=== PATIENT | female | born 1935 | race Caucasian/White ===

== ENCOUNTER 2018-01-29 17:13 | Emergency (ER) | payer MEDICARE, OTHER ==
[~2018-01-29] VITALS: Ht 160 cm; Wt 61.4 kg
[~2018-01-29 17:13] MED LIST: ALEVE220 MG PO; ALL DAY ALLERGY10 M3 PO; ARICEPT10 M1 PO; ASPIRIN81 M2 PO; BIOTIN5000 MCG PO; BUSPIRONE HCL10 MG PO; BUTALB-APAP-CA1 EACH PO; CARAFATE 1 GM TA1 G1 PO; CARBIDOPA-LEVO1 EAC8 PO; CLONAZEPAM 0.50.5 M1 PO; DEPAKOTE 250MG250 M1 PO; DEPAKOTE ER500 MG PO; DILANTIN100 MG PO; DOC-Q-LACE100 MG PO; FISH OIL 1,001000 M2 PO; FLONASE 0.05%50 MCG NASAL; FOLIC ACID1 MG PO; HYDROCODONE-APA1 TA1 PO; KLOR-CON M1010 MEQ PO; LEVOTHYROXIN0.088 MG PO; LOVASTATIN 20 M20 MG PO; MEDROLDOSEPACK PO; MELATONIN1 MG PO; METAMUCIL PAC1 UDPKT PO; MIRALAX17 GM PO; NORCO 5-325 TA1 EAC1 PO; OMEPRAZOLE40 MG PO; OYSCO 500+D TA1 EACH PO; OYST-CAL-500500 MG PO; RESTORIL30 MG PO; ROBITUSSIN100 MG/53 PO; SENOKOT-S1 TA1 PO; SYSTANE 0.3-0.1 EACH OP; TESSALON PERLE100 MG PO; TYLENOL325 MG PO; UNICOMPLEX M TA1 TA1 PO; VITAMINC500 PO; XANAX 0.5 MG0.5 MG PO; ZIOPTAN 0.00151 EACH OP
[2018-01-29] MEDS ORDERED: IBUPROFEN 800800 M1 PO (17:19)
[2018-01-29] MEDS ORDERED: ROBITUSSIN100 MG/53 PO (17:20)
[2018-01-29] MEDS ORDERED: ONDANSETRON HCL4 M2 PO (17:20)
[2018-01-29] MEDS ORDERED: LORATIDINE 10 M10 M1 PO (17:20)
[2018-01-29] MEDS ORDERED: NORCO 7.5-3251 EACH PO (17:21)
[2018-01-29] MEDS ORDERED: XANAX 0.5 MG0.5 M1 PO (17:21)
[2018-01-29] MEDS ORDERED: SYSTANE 0.3-0.1 EACH OPHTHALMIC (17:22)
[2018-01-29] MEDS ORDERED: ALEVE220 MG PO (17:22)
[2018-01-29] MEDS ORDERED: TYLENOL EXTRA500 MG PO (17:22)
[2018-01-29] MEDS ORDERED: HYDROCORTISONE30 G9 TOP (17:22)
[2018-01-29] MEDS ORDERED: TESSALON PERLE100 MG PO (17:23)
[2018-01-29] MEDS ORDERED: BUTALB-APAP-CA1 EACH PO (17:23)
[2018-01-29] MEDS ORDERED: COUGH DROPS3.1 MG PO (17:23)
[2018-01-29] MEDS ORDERED: CARBIDOPA-LEVO1 EAC8 PO (17:24)
[2018-01-29] MEDS ORDERED: DIPHENHIST50 MG PO (17:24)
[2018-01-29] MEDS ORDERED: FLONASE 0.05%50 MCG NASAL (17:24)
[2018-01-29] MEDS ORDERED: CARAFATE 1 GM TA1 G1 PO (17:25)
[2018-01-29] MEDS ORDERED: NATURAL FIBER0.52 GM PO (17:25)
[2018-01-29] MEDS ORDERED: DILANTIN100 MG PO (17:26)
[2018-01-29] MEDS ORDERED: OMEPRAZOLE40 MG PO (17:26)
[2018-01-29] MEDS ORDERED: MIRALAX17 GM PO (17:26)
[2018-01-29] MEDS ORDERED: SENNA-DOCUSATE1 EAC1 PO (17:27)
[2018-01-29] MEDS ORDERED: RESTORIL30 MG PO (17:27)
[2018-01-29] MEDS ORDERED: ZIOPTAN 0.00151 EACH OPHTHALMIC (17:31)
[2018-01-29] MEDS ORDERED: VITAMINC500 PO (17:31)
[2018-01-29] MEDS ORDERED: ASPIR 8181 MG PO (17:32)
[2018-01-29] MEDS ORDERED: BIOTIN5000 MCG PO (17:32)
[2018-01-29] MEDS ORDERED: DOC-Q-LACE100 MG PO (17:32)
[2018-01-29] MEDS ORDERED: DEPAKOTE ER500 MG PO (17:32)
[2018-01-29] MEDS ORDERED: FISH OIL 1,001000 M2 PO (17:32)
[2018-01-29] MEDS ORDERED: ARICEPT 5 MG TAB5 MG PO (17:34)
[2018-01-29] MEDS ORDERED: SYNTHROID88 MCG PO (17:35)
[2018-01-29] MEDS ORDERED: PRINIVIL20 MG PO (17:35)
[2018-01-29] MEDS ORDERED: LATUDA80 MG PO (17:35)
[2018-01-29] MEDS ORDERED: MELATONIN3 MG PO (17:36)
[2018-01-29] MEDS ORDERED: LOVASTATIN 20 M20 MG PO (17:36)
[2018-01-29 19:25] VITALS: BP 183/70
--- NOTE | 2018-01-30 10:56 | EKG ---
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 : 1935 Requested By: Zuleyma Mujica Order Number: [id number] MD: Mayco Thompson Measurements Intervals [place] Rate: 72 P: 34 NE: 142 QRS: -30 QRSD: 102 T: 79 QT: 441 QTc: 483 Interpretive Statements Pacemaker spikes or artifacts Sinus rhythm Probable left atrial enlargement LVH with secondary repolarization abnormality Compared to ECG 12/29/2016 12:09:17 no change Electronically Signed On 01-30-2018 10:55:59 CDT by Mayco Thompson [email or web address] <ELECTRONICALLY SIGNED> By: Mayco Thompson MD, [facility] 01/30/18 1055 1739 1739 Mayco Thompson MD, [facility] /EPI
== END 2018-01-29 19:26 | disposition home or self-care (01) ==
LOC: M.ERS 17:13
DX: S00.03XA Contusion of scalp, initial encounter (principal); I10 Essential (primary) hypertension; F31.9 Bipolar disorder, unspecified; E78.00 Pure hypercholesterolemia, unspecified; Z90.710 Acquired absence of both cervix and uterus; Z88.8 Allergy status to other drugs, medicaments and biological substances; W18.39XA Other fall on same level, initial encounter; Y93.89 Activity, other specified; Y92.89 Other specified places as the place of occurrence of the external cause; Y99.8 Other external cause status

== ENCOUNTER 2020-11-15 18:26 | Inpatient (IN) | payer MEDICARE, MEDICAID ==
[~2020-11-15] VITALS: Ht 160 cm; Wt 62.1 kg
[~2020-11-15 18:26] MED LIST changes: +ARICEPT 5 MG TAB5 MG PO; +ASPIR 8181 MG PO; +COUGH DROPS3.1 MG PO; +DIPHENHIST50 MG PO; +HYDROCORTISONE30 G9 TOP; +IBUPROFEN 800800 M1 PO; +LATUDA80 MG PO; +LORATIDINE 10 M10 M1 PO; +MELATONIN3 MG PO; +NATURAL FIBER0.52 GM PO; +NORCO 7.5-3251 EACH PO; +ONDANSETRON HCL4 M2 PO; +PRINIVIL20 MG PO; +SENNA-DOCUSATE1 EAC1 PO; +SYNTHROID88 MC1 PO; +SYSTANE 0.3-0.1 EACH OPHTHALMIC; +TYLENOL EXTRA500 MG PO; +XANAX 0.5 MG0.5 M1 PO; +ZIOPTAN 0.00151 EACH OPHTHALMIC
[2020-11-15 18:27] VITALS: BP 176/78
[2020-11-15 18:52] LABS: URINE BILIRUBIN NEGATIVE (Negative); URINE BLOOD 3+ (Negative); URINE CLARITY SL CLOUDY; URINE COLOR DARK YELLOW; URINE GLUCOSE-RANDOM NEGATIVE (Negative); URINE KETONES NEGATIVE (Negative); URINE LEUKOCYTES NEGATIVE (Negative); URINE NITRITE NEGATIVE (Negative); URINE PROTEIN 2+ (Negative); URINE SPECIFIC GRAVITY 1.025 (1.005-1.030); URINE UROBILINOGEN 0.2 E.U./dl (0.2-1.0)
[2020-11-15 19:00] LABS: URINE RBC >20 Many /HPF (0-2)
[2020-11-15 19:01] LABS: SQUAMOUS 4-10 Moderate /LPF (0-3)
[2020-11-15 19:02] LABS: BACTERIA None Seen /HPF (None Seen); CRYSTALS None Seen /LPF (None Seen); HYALINE CASTS 0-3 Few /LPF (None Seen); MUCUS 0-3 Light strn/LPF (None Seen); URINE WBC 0-5 Rare /HPF (0-5)
[2020-11-15 19:03] LABS: ABSOLUTE EOSINOPHILS 0.3 thou/uL (0.0-0.7); ABSOLUTE LYMPHOCYTES 1.3 thou/uL (0.8-5.3); ABSOLUTE MONOCYTES 0.7 thou/uL (0.0-1.2); ABSOLUTE NEUTROPHILS 4.3 thou/uL (1.6-8.1); BASOPHILS 0.7 %; EOSINOPHILS 4.7 %; HEMOGLOBIN 12.5 gm/dL (12.0-15.0); LYMPHOCYTES 19.5 %; MCH 32.3 pg (26.0-34.0); MCHC 33.7 g/dL (28.0-37.0); MCV 95.7 fL (80.0-100.0); MONOCYTES 10.4 %; MPV 9.2 fl. (7.2-11.1); NUCLEATED RBCS 0 /100WBC; PLATELET COUNT* 165 thou/uL (150-400); POLYS 64.7 %; RBC 3.86 mil/uL (4.20-5.00); RDW-CV 13.9 % (10.5-14.5); WBC 6.6 thou/uL (4.0-11.0)
[2020-11-15] MEDS ORDERED: XALATAN2.5 ML OPHTHALMIC (19:05)
[2020-11-15] MEDS ORDERED: SORBITOL1 ML (19:08)
[2020-11-15] MEDS ORDERED: SYSTANE 0.3-0.1 EACH (19:09)
[2020-11-15] MEDS ORDERED: OYSTERCAL-D 501 EACH PO (19:09)
[2020-11-15 19:17] LABS: CALCIUM 8.7 mg/dL (8.5-10.1); POTASSIUM 4.3 mmol/L (3.5-5.1)
[2020-11-15 19:22] LABS: ALBUMIN 3.1 g/dL (3.4-5.0); TOTAL BILIRUBIN 0.2 mg/dL (<0.1-1.0); TOTAL PROTEIN 6.8 g/dL (6.4-8.2)
[2020-11-15 21:28] VITALS: BP 145/62
[2020-11-15 22:00] VITALS: BP 175/83
[2020-11-15] MEDS ORDERED: DEPAKOTE ER500 M1 PO (22:12)
--- NOTE | 2020-11-16 10:33 | EKG ---
[place] [address] ELECTROCARDIOGRAM REPORT Name: JOANA PIERCE Room: [address] ADM IN M.R.#: [id number] Admission: 11/16/20 Attend Phys: Robert Pérez Discharge: Date of : 37 Date of Service: 11/15/20 1855 Report #: [id number] THIS REPORT FOR: //name// [facility] ED Test Date: 2020-11-15 Test Time: 18:55:24 Pat Name: JOANA PIERCE Department: Room: [facility] Gender: F [employer]: KRISTIN : 1935 Requested By: Kee Russ Order Number: [id number] MD: Mayco Thompson Measurements Intervals [place] Rate: 64 P: 33 [place]: 144 QRS: -28 QRSD: 99 T: 92 QT: 433 QTc: 447 Interpretive Statements Sinus rhythm LVH with secondary repolarization abnormality Anterior Q waves, possibly due to LVH Compared to ECG 01/29/2018 17:39:09 no change Electronically Signed On 11-16-2020 10:33:00 CDT by Mayco Thompson [email or web address] <ELECTRONICALLY SIGNED> By: Mayco Thompson MD, [facility] 11/16/20 1033 1855 Mayco Thompson MD, [facility] /EPI
[2020-11-16 11:45] VITALS: BP 164/71
[2020-11-16 22:00] VITALS: BP 198/92
[2020-11-16 23:30] VITALS: BP 178/68
[2020-11-17 03:57] LABS: HEMATOCRIT 30.5 % (37.0-47.0); MCH 32.3 pg (26.0-34.0); MCHC 34.1 g/dL (28.0-37.0); MCV 94.7 fL (80.0-100.0); MPV 9.6 fl. (7.2-11.1); RBC 3.22 mil/uL (4.20-5.00); RDW-CV 14.4 % (10.5-14.5); WBC 6.6 thou/uL (4.0-11.0)
[2020-11-17 04:02] LABS: HEMOGLOBIN 10.4 gm/dL (12.0-15.0)
[2020-11-17 04:07] LABS: CALCIUM 8.3 mg/dL (8.5-10.1); CREATININE 0.7 mg/dL (0.6-1.3); POTASSIUM 3.5 mmol/L (3.5-5.1)
[2020-11-17 04:15] VITALS: BP 185/69
[2020-11-17 08:32] VITALS: BP 151/76
[2020-11-17 13:13] VITALS: BP 151/76
== END 2020-11-17 13:15 | disposition home health service (06) | DRG 92 ==
LOC: M.ERS 18:26 → M.TBA-ER 20:21 → M.2W 21:58 → M.ORTHSURG 11-16 10:06
PROVIDERS: Emergency Medicine; Internal Medicine; ADMIT Internal Medicine; ATTEND Internal Medicine
DX: G92 Toxic encephalopathy (principal); E44.0 Moderate protein-calorie malnutrition; R31.9 Hematuria, unspecified; Z20.822 Contact with and (suspected) exposure to COVID-19; I10 Essential (primary) hypertension; F31.9 Bipolar disorder, unspecified; S00.03XA Contusion of scalp, initial encounter; N32.9 Bladder disorder, unspecified; K21.9 Gastro-esophageal reflux disease without esophagitis; E03.9 Hypothyroidism, unspecified; G20 Parkinson's disease; F02.80 Dementia in other diseases classified elsewhere, unspecified severity, without behavioral disturbance, psychotic disturbance, mood disturbance, and anxiety; R26.81 Unsteadiness on feet; T50.905A Adverse effect of unspecified drugs, medicaments and biological substances, initial encounter; Z90.710 Acquired absence of both cervix and uterus; Z98.49 Cataract extraction status, unspecified eye; Z88.8 Allergy status to other drugs, medicaments and biological substances; Z68.24 Body mass index [BMI] 24.0-24.9, adult; W18.39XA Other fall on same level, initial encounter; Y93.89 Activity, other specified; Y92.89 Other specified places as the place of occurrence of the external cause; Y99.8 Other external cause status; T42.4X5A Adverse effect of benzodiazepines, initial encounter

== ENCOUNTER 2021-06-01 08:58 | Emergency (ER) | payer MEDICARE, MEDICAID ==
[~2021-06-01] VITALS: Ht 157.5 cm; Wt 56.7 kg
[~2021-06-01 08:58] MED LIST changes: -ASPIR 8181 MG PO; +CHILDREN'S ASPI81 MG PO; +COLACE 100 MG100 MG PO; +DEPAKOTE ER500 M1 PO; +LEVSIN0.125 MG SUBLING; +OYSTERCAL-D 501 EACH PO; +SORBITOL1 ML; +SYSTANE 0.3-0.1 EACH; +XALATAN2.5 ML OPHTHALMIC
[2021-06-01 10:15] VITALS: BP 214/90
== END 2021-06-01 10:15 | disposition home or self-care (01) ==
LOC: M.ERS 08:58
DX: I10 Essential (primary) hypertension (principal); F32.9 Major depressive disorder, single episode, unspecified; K21.9 Gastro-esophageal reflux disease without esophagitis; Z90.710 Acquired absence of both cervix and uterus; Z79.899 Other long term (current) drug therapy; Z91.048 Other nonmedicinal substance allergy status